=== PATIENT | female | born 1995 | race Caucasian/White ===

== ENCOUNTER 2021-09-10 10:53 | Outpatient (CLI) | payer OTHER ==
[2021-09-10 12:06] VITALS: BP 136/87; PULSE 84; RESP 18; TEMP 97.8
--- NOTE | 2021-09-14 08:37 | P.MSEPDOC ---
Presenting Problems - Arrival Data Date of Arrival on Unit: 09/10/21 Time of Arrival on Unit: 10:53 Mode of Transport: Ambulatory - Complaint OB-Reason for Admission/Chief Complaint: Other Comment: Sent over from [place] due to elevated blood pressure of 139/100. Pt maribel s/s or complications with . Medical History - Information : 4 Para: 2 Term: 2 : 0 Abortions: Spontaneous or Elective: 0 Number of Living Children: 2 - Gestational Age Gestational Age by PRIYANK (wks/days): 36 Weeks and 1 Days Review of Systems - Review of Systems Constitutional: No problems Breast: No problems ENT: No problems Cardiovascular: No problems Respiratory: No problems Gastrointestinal: No problems Genitourinary: No problems Musculoskeletal: No problems Neurological: No problems Skin: No problems Vital Signs - Temperature Temperature: 97.8 F Temperature Source: Temporal Artery Scan - Pulse Right Pulse Rate: 84 Pulse Assessment Method: Pulse Oximetry - Respirations Respiratory Rate: 18 Oxygen Delivery Method: Room Air O2 Sat by Pulse Oximetry: 99 - Blood Pressure Right Arm Blood Pressure: 136/87 Blood Pressure Mean: 103 Blood Pressure Source: Automatic Cuff Medical Screen Scoring - Assessment - Baby A Baseline FHR: 135 Heart Rate - NICHD Category: Category I (Normal) NST: Reactive Physician Notification - Physician Notified Physician Notified Date: 09/10/21 Physician Notified Time: 11:45 Physician: Mitzi Nava Order Received: Yes (discharge with follow up instructions.) Maternal Triage Index - Maternal Triage Index Presenting for scheduled procedure w/no complaint: No - Stat/Priority 1 Stat Priority 1: No - Urgent/Priority 2 Urgent Priority 2: No - Prompt/Priority 3 Prompt Priority 3: No - Non-Urgent/Priority 4 Non-Urgent Priority 4: Yes Criteria Met for Priority 4: Sent over from [place] r/t elevated blood pressure reading before d/c home. Pt denies complications or s/s. Disposition - Disposition OB Disposition: Discharge to home Discharge Date: 09/10/21 Discharge Time: 11:50 I agree with the RN Medical Screening Exam: Yes Case reviewed; plan agreed upon as documented in EMR&OBIX.: Yes Comments: Patient will follow-up with her [facility] in [facility] since she is being discharged from [place] today. She denies any other symptoms of preeclampsia and her blood pressure is normal in triage. Diagnosis: GESTATIONAL HTN W/O SIGNIFICANT PROTEINURIA, THIRD TRIMESTER
== END 2021-09-10 11:50 | disposition home or self-care (01) ==
LOC: FBPOP 10:53
PROVIDERS: ATTEND Obstetrics & Gynecology
DX: O13.3 Gestational [pregnancy-induced] hypertension without significant proteinuria, third trimester (principal); Z3A.36 36 weeks gestation of pregnancy
CPT/HCPCS: 59025; G0463; 99213